=== PATIENT | female | born 1945 | race Two or more races ===

== ENCOUNTER 2021-05-08 10:28 | Inpatient (IN) | payer OTHER ==
[~2021-05-08] VITALS: Ht 152.4 cm; Wt 64.4 kg
[2021-05-08] MEDS ORDERED: SYNTHROID100 MCG PO (11:04)
[2021-05-08] MEDS ORDERED: TOPROL XL50 M1 PO (11:04)
[2021-05-08] MEDS ORDERED: LANTUS SOL100 UNIT/1 (11:05)
[2021-05-08] MEDS ORDERED: JANUVIA25 MG PO (11:05)
[2021-05-08] MEDS ORDERED: HUMALOG100 UNIT/2 SQ (11:05)
== END 2021-05-16 15:44 | disposition home or self-care (01) | DRG 866 ==
LOC: ER 10:28 → SURH 18:41
PROVIDERS: ADMIT Internal Medicine; ATTEND Internal Medicine
PROC: 30233R1 Transfusion of Nonautologous Platelets into Peripheral Vein, Percutaneous Approach (ICD-10-PCS; principal; 2021-05-10)
PROC: 07DR3ZX Extraction of Iliac Bone Marrow, Percutaneous Approach, Diagnostic (ICD-10-PCS; 2021-05-13)
DX: B34.9 Viral infection, unspecified (principal); J44.0 Chronic obstructive pulmonary disease with (acute) lower respiratory infection; I10 Essential (primary) hypertension; J20.9 Acute bronchitis, unspecified; D69.49 Other primary thrombocytopenia; Z20.822 Contact with and (suspected) exposure to COVID-19; E03.8 Other specified hypothyroidism; E11.9 Type 2 diabetes mellitus without complications; Z79.4 Long term (current) use of insulin

== ENCOUNTER 2021-07-18 11:58 | Emergency (ER) | payer OTHER ==
[~2021-07-18] VITALS: Ht 152.4 cm; Wt 65.8 kg
[~2021-07-18 11:58] MED LIST: HUMALOG100 UNIT/2 SQ; JANUVIA25 MG PO; LANTUS SOL100 UNIT/1; SYNTHROID100 MCG PO; TOPROL XL50 M1 PO
[2021-07-18] MEDS ORDERED: TUSSI PRES-B L480 ML PO (14:47)
[2021-07-18] MEDS ORDERED: ZITHROMAX200 MG PO (14:47)
== END 2021-07-18 14:51 | disposition home or self-care (01) ==
LOC: ER 11:58
DX: B34.9 Viral infection, unspecified (principal); Z20.822 Contact with and (suspected) exposure to COVID-19

== ENCOUNTER 2023-11-12 10:30 | Emergency (ER) | payer OTHER ==
[~2023-11-12] VITALS: Ht 152.4 cm; Wt 61.2 kg
[~2023-11-12 10:30] MED LIST changes: +TUSSI PRES-B L480 ML PO; +ZITHROMAX200 MG PO
[2023-11-12] MEDS ORDERED: JARDIANCE25 MG PO (10:44)
[2023-11-12] MEDS ORDERED: LOSARTAN POTASS25 MG PO (10:44)
== END 2023-11-12 14:07 | disposition home or self-care (01) ==
LOC: ER 10:30
DX: B02.29 Other postherpetic nervous system involvement (principal)